=== PATIENT | female | born 1995 | race Two or more races ===

== ENCOUNTER 2021-01-29 06:30 | Inpatient (IN) ==
[2021-01-29] MEDS ORDERED: BETADINE SOLN ONE (06:36)
[2021-01-29] MEDS ORDERED: D5 1/2 NS 1000 ML 1,000 ML IV ONE (06:36)
[2021-01-29] MEDS ORDERED: PITOCIN ONE ×2 (06:36→10:59)
[2021-01-29] MEDS ORDERED: D5LR 1L W PITOCIN 10 UNITS/L 10 UNITS/1,000 ML BAG IV ONE (06:37)
[2021-01-29] MEDS ORDERED: D5 1/2 NS 1L W PITOCIN 20 UNITS/L 0 UNITS/0 ML BAG IV ONE (06:37)
[2021-01-29] MEDS ORDERED: REGLAN INJ 10 MG VIAL IVP PRN ×2 (06:45→18:08)
[2021-01-29] MEDS ORDERED: PITOCIN IVP ONE (06:45)
[2021-01-29] MEDS ORDERED: PHENERGAN INJ 25 MG IM PRN ×2 (06:45→18:08)
[2021-01-29] MEDS ORDERED: D5LR 1L W PITOCIN 10 UNITS/L 10 UNITS/1,000 ML BAG IV PRN (06:45)
[2021-01-29] MEDS ORDERED: MORPHINE SULFATE INJ 2 MG INJ IVP PRN (06:45)
[2021-01-29] MEDS ORDERED: D5 1/2 NS 1000 ML 1,000 ML IV SCH (06:45)
[2021-01-29] MEDS ORDERED: NUBAIN INJ 200 MG VIAL MULTIDOSE IVP PRN (06:45)
--- NOTE | 2021-01-29 07:25 | DR.OB ---
OB Quick Note - Assessment/Plan Assessment/Plan: L&D 01/29/21 at 7:00am S-No complaint. O-Afebrile,VSS FWK=904 with good LTV, +accel, no decel. CTX=none CVX=1cm/50%/-1/VTX AROM with clear fluid. IUPC placed. A-IUP at 39 1/7 weeks for induction P-Begin pitocin induction Anticipate
[2021-01-29] MEDS ORDERED: FENTANYL INJ 100 mcg ONE ×4 (10:28→18:27)
[2021-01-29] MEDS ORDERED: LR 1000 ML IV 1,000 ML IV ONE (10:28)
[2021-01-29] MEDS ORDERED: NAROPIN EPIDURAL 0.2% 100 ML ONE ×2 (10:30→18:28)
[2021-01-29] MEDS ORDERED: ZOFRAN INJ 4 MG VIAL ONE (10:59)
[2021-01-29] MEDS ORDERED: XYLOCAINE 2% and EPINEPHRINE 1:100,000 ONE (10:59)
[2021-01-29] MEDS ORDERED: EPHEDRINE SULFATE INJ ONE (10:59)
--- NOTE | 2021-01-29 12:01 | DR.OB ---
OB Quick Note - Assessment/Plan Assessment/Plan: L&D 01/29/21 at 11:55am Pitocin=18mu/min. S-No complaint. s/p epidural. O-Afebrile,VSS DUM=201 with good LTV, +accel, no decel. CTX=q 1 1/2 to 3 min., about 35-55mmHg CVX=2cm/75%/-1 A-IUP at 39 1/7 weeks for induction P-Cont. pitocin induction Anticipate
[2021-01-29] MEDS ORDERED: NS 100 ML IV 100 ML IV ONE ×2 (16:13→16:17)
[2021-01-29] MEDS ORDERED: ANCEF VIAL 1 GRAM ONE ×2 (16:13→16:17)
--- NOTE | 2021-01-29 16:29 | DR.OB ---
OB Quick Note - Assessment/Plan Assessment/Plan: L&D 01/29/21 at 4:10pm Pitocin=22mu/min. S-Pt. with fever and chills. Infant tachy. O-T=101.0 MFZ=798 with poor LTV, no accel or decel. CTX=q 1 1/2 to 3 min., about 35-45mmHg CVX=3cm/75%/-1 A-IUP at 39 1/7 weeks with fever/tachy distant from delivery P-To C/S
[2021-01-29] MEDS ORDERED: TYLENOL 325 MG TAB PO ONE (16:36)
[2021-01-29 16:40] LABS: BASOPHILS # (AUTO) 0.1 X10^3/uL (0.0-0.1); BASOPHILS % (AUTO) 0.6 % (0.2-1.0); EOSINOPHILS % (AUTO) 0.1 % (0.9-2.9); HEMOGLOBIN 12.2 g/dL (12.0-16.0); LYMPHOCYTES % (AUTO) 11.6 % (21.0-51.0); MEAN CORPUSCULAR HEMOGLOBIN 28.4 pg (27.0-34.0); MEAN CORPUSCULAR HGB CONC 32.9 g/dL (33.0-35.0); MEAN CORPUSCULAR VOLUME 86.5 fL (80.0-100.0); MEAN PLATELET VOLUME 10.4 fL (7.4-11.0); MONOCYTES # (AUTO) 0.8 x10^3/uL (0.3-0.8); MONOCYTES % (AUTO) 4.5 % (0.0-13.0); NEUTROPHILS # (AUTO) 14.2 x10^3/uL (2.2-4.8); NEUTROPHILS % (AUTO) 83.2 % (42.0-75.0); PLATELET COUNT 197 X10^3/uL (150.0-450.0); RED BLOOD COUNT 4.28 X10^6/uL (3.5-5.4); RED CELL DISTRIBUTION WIDTH 14.2 % (11.6-16.5)
[2021-01-29] MEDS ORDERED: XYLOCAINE 2 % (PLAIN) ONE (16:47)
[2021-01-29] MEDS ORDERED: OFIRMEV IV 1000 MG VIAL 1,000 MG/100 ML VIAL IV ONE (16:48)
[2021-01-29] MEDS ORDERED: XYLOCAINE-MPF 2% ONE ×2 (16:49→17:35)
[2021-01-29] MEDS ORDERED: NS 1000 ML 1,000 ML ONE (17:03)
[2021-01-29] MEDS ORDERED: DILAUDID INJ IVP PRN (18:08)
[2021-01-29] MEDS ORDERED: BARHEMSYS INJ IVP PRN (18:08)
[2021-01-29] MEDS ORDERED: ZOFRAN INJ 4 MG VIAL IVP PRN ×2 (18:08→18:28)
[2021-01-29] MEDS ORDERED: BENADRYL INJ 50 MG VIAL IVP PRN ×2 (18:08→18:28)
[2021-01-29] MEDS ORDERED: NARCAN INJ IVP PRN (18:28)
[2021-01-29] MEDS ORDERED: ADACEL or BOOSTRIX TDaP VACCINE IM ONE (18:28)
[2021-01-29] MEDS ORDERED: TORADOL 30 MG VIAL IVP PRN (18:28)
[2021-01-29] MEDS ORDERED: MORPHINE SULFATE PCA 30 MG IVP PRN (18:28)
[2021-01-29] MEDS ORDERED: PERCOCET TAB 5/325 MG PO PRN (18:28)
[2021-01-29] MEDS ORDERED: MYLICON TAB 80 MG CHEW PO PRN (18:28)
[2021-01-29] MEDS ORDERED: D5 1/2 NS 1000 ML 1,000 ML with PITOCIN 20 UNITS IV SCH ×2 (19:00)
[2021-01-29] MEDS: ANCEF VIAL 1 GRAM IVP SCH (22:57)
[2021-01-30 05:05] LABS: HEMOGLOBIN 9.1 g/dL (12.0-16.0)
[2021-01-30] MEDS: PERCOCET TAB 5/325 MG PO PRN ×4 (06:22→21:31)
[2021-01-30] MEDS: ANCEF VIAL 1 GRAM IVP SCH ×3 (06:25→21:30)
[2021-01-30] MEDS: BACTROBAN TOPICAL OINT TOP SCH ×3 (06:25→21:30)
[2021-01-30] MEDS: COLACE CAP 100 MG PO SCH ×2 (09:45→21:30)
[2021-01-30] MEDS: PRENATAL PLUS PO SCH (09:45)
[2021-01-30] MEDS: MOTRIN TAB 800 MG PO PRN (09:45)
[2021-01-30] MEDS: PROTONIX TAB 40 MG PO SCH (09:45)
[2021-01-31] MEDS: PERCOCET TAB 5/325 MG PO PRN (01:12)
[2021-01-31] MEDS: ANCEF VIAL 1 GRAM IVP SCH (05:52)
[2021-01-31] MEDS: BACTROBAN TOPICAL OINT TOP SCH (05:53)
[2021-01-31] MEDS: MOTRIN TAB 800 MG PO PRN (05:56)
[2021-01-31] MEDS ORDERED: ADACEL or BOOSTRIX TDaP VACCINE IM ONE (08:39)
[2021-01-31] MEDS: PROTONIX TAB 40 MG PO SCH (09:37)
[2021-01-31] MEDS: PRENATAL PLUS PO SCH (09:37)
[2021-01-31] MEDS: COLACE CAP 100 MG PO SCH (09:37)
[2021-01-31] MEDS ORDERED: MILK OF MAGNESIA PO PRN (10:54)
[2021-01-31 12:36] VITALS: BP 117/78
== END 2021-01-31 12:35 | disposition home or self-care (01) | DRG 786 ==
LOC: LD 06:33 → MED/SURG 18:50
PROVIDERS: ADMIT Specialist; ATTEND Specialist
DX: Z3A.39 39 weeks gestation of pregnancy; Z37.0 Single live birth; O99.613 Diseases of the digestive system complicating pregnancy, third trimester; O76 Abnormality in fetal heart rate and rhythm complicating labor and delivery; O41.1230 Chorioamnionitis, third trimester, not applicable or unspecified